=== PATIENT | male | born 1980 ===

== ENCOUNTER 2020-04-26 13:21 | Outpatient (CLI) | payer MEDICAID ==
[~2020-04-26] VITALS: Ht 177.8 cm; Wt 108.4 kg
[2020-04-26 14:08] VITALS: BP 118/76
--- NOTE | 2020-04-26 22:00 | Consultation ---
DATE OF CONSULTATION: 04/26/2020 CHIEF COMPLAINT: Rectal bleeding. HISTORY OF PRESENT ILLNESS: The patient is a 39-year-old male who presented with complaint of rectal bleeding. It is going on for a few weeks now on and off, sometimes with blood in the toilet, some blood mixed in the stool. The patient is concerned about malignancy. PAST MEDICAL HISTORY: 1. Hypertension. 2. Depression. 3. GERD. 4. ADHD. 5. History of alcohol abuse. 6. History of alcohol withdrawal seizures. PAST SURGICAL HISTORY: None. MEDICATIONS: Please see medication reconciliation list. FAMILY HISTORY: No family history of GI malignancies. SOCIAL HISTORY: The patient has prior history of alcohol, but at this time he does not drink. ALLERGIES: No known allergies. REVIEW OF SYSTEMS: Positive for constipation and diarrhea episodes and also rectal bleeding and also complained of rectal pain and bloating. PHYSICAL EXAMINATION: VITAL SIGNS: Temperature 96.8, blood pressure 118/76, pulse is 96, respirations 20. HEENT: Normocephalic and atraumatic. Sclerae are anicteric. NECK: Supple. No evidence of obvious lymphadenopathy. CARDIOVASCULAR: Regular rate and rhythm. Plus S1 and S2. LUNGS: Clear to auscultation bilaterally. ABDOMEN: Positive bowel sounds. Soft and nontender. No rebound. No guarding. No peritoneal sign. EXTREMITIES: No cyanosis. No clubbing. No edema. ASSESSMENT: This is a 39-year-old male with signs and symptoms of rectal bleeding, concerning given blood mixed in the stool. bleeding that is seen only on toilet paper. PLAN: Screening colonoscopy. The patient was informed about the risks and benefits of the procedure. Prep was explained to him and given prescription for the prep. We will schedule him when authorization is obtained. Lamberto Bernardo M.D. DR: RAQUEL JOB#: [id number] CC:
[2020-04-27] MEDS ORDERED: NALTREXONE HCL50 MG PO (08:49)
[2020-04-27] MEDS ORDERED: ADDERAL20 MG ORAL (08:49)
[2020-04-27] MEDS ORDERED: ABILIFY2 MG ORAL (08:49)
[2020-04-27] MEDS ORDERED: BUPROPION XL300 M1 PO (08:49)
[2020-04-27] MEDS ORDERED: OMEPRAZOLE40 M1 ORAL (08:49)
[2020-04-27] MEDS ORDERED: METAMUCIL660 GM PO (08:49)
[2020-04-27] MEDS ORDERED: LISINOPRIL-HCT1 EAC2 ORAL (08:49)
[2020-04-27] MEDS ORDERED: FLUOXETINE HCL10 M2 ORAL (08:49)
== END 2020-04-26 15:21 | disposition home or self-care (01) ==
LOC: PAN 13:21
DX: K62.5 Hemorrhage of anus and rectum (principal); I10 Essential (primary) hypertension; F32.9 Major depressive disorder, single episode, unspecified; K21.9 Gastro-esophageal reflux disease without esophagitis; K59.00 Constipation, unspecified; R19.7 Diarrhea, unspecified; R14.0 Abdominal distension (gaseous); K62.89 Other specified diseases of anus and rectum
CPT/HCPCS: G0463